=== PATIENT | male | born 1980 | race Two or more races ===

== ENCOUNTER → 2020-04-08 | Emergency (ER) | payer MEDICAID ==
[~2020-04-08] MED LIST: HYDROmorphone HCL 2 MG/ML VL IV ONE; MORPHINE SULFATE 4 MG/ML SYR/VIAL IV ONE; ONDANSETRON HCL 4 MG/2 ML VIAL IV ONE; TETANUS-DIPTH-ACEL PERTUSSIS 0.5ML SYR Tdap IM ONE; VANCOMYCIN 1GM/250ML 250 ML IV ONE; cefTRIAXone 1GM/50ML D5W 50 ML IV ONE
[2020-04-08 22:10] VITALS: BP 128/92
== END | disposition home or self-care (01) ==
LOC: ER 20:16
DX: S08.112A Complete traumatic amputation of left ear, initial encounter (principal); S01.352A Open bite of left ear, initial encounter; W54.0XXA Bitten by dog, initial encounter; Y93.89 Activity, other specified; Y92.89 Other specified places as the place of occurrence of the external cause; Y99.8 Other external cause status
CPT/HCPCS: 90471; 90715; 96365; 96367; 96375; 99285; J0696; J1170; J2270; J2405; J3370